=== PATIENT | male | born 1995 | race African-American/Black ===

== ENCOUNTER 2017-12-05 03:24 | Emergency (ER) | payer SELFPAY ==
[2017-12-05] MEDS: BACITRACIN OINT 30GM TOP (06:45)
== END 2017-12-05 07:48 | disposition home or self-care (01) ==
LOC: M ED 03:24
DX: S00.81XA Abrasion of other part of head, initial encounter (principal); S40.211A Abrasion of right shoulder, initial encounter; S80.212A Abrasion, left knee, initial encounter; V00.138A Other skateboard accident, initial encounter
CPT/HCPCS: 71101